=== PATIENT | male | born 1980 | race Two or more races ===

== ENCOUNTER 2025-07-28 20:46 | Emergency (ER) | payer SELFPAY | END 2025-07-28 21:46 | disposition home or self-care (01) | LOC: MW.ED 20:46 | DX: S39.012A Strain of muscle, fascia and tendon of lower back, initial encounter (principal); Z75.3 Unavailability and inaccessibility of health-care facilities; X58.XXXA Exposure to other specified factors, initial encounter | CPT/HCPCS: 99283; A9270 ==